=== PATIENT | male | born 1965 | race Caucasian/White ===

== ENCOUNTER 2019-08-03 17:58 | Emergency (ER) | payer SELFPAY ==
[~2019-08-03] VITALS: Ht 165.1 cm; Wt 89.4 kg
[2019-08-03 18:10] VITALS: Ht 165.1 cm; Wt 89.4 kg
[2019-08-03 20:55] VITALS: BP 117/69
== END 2019-08-03 20:55 | disposition home or self-care (01) ==
LOC: ED 17:58
DX: J20.9 Acute bronchitis, unspecified (principal)
CPT/HCPCS: 87804